=== PATIENT | male | born 1965 | race Asian ===

== ENCOUNTER 2017-01-03 17:47 | Emergency (ER) | payer MEDICAID ==
[~2017-01-03] VITALS: Ht 162.6 cm; Wt 63.5 kg
[2017-01-03] MEDS ORDERED: Norco 5mg/325mg tab ORAL ONE (18:00)
[2017-01-03] MEDS ORDERED: IBUPROFEN600 MG ORAL (18:21)
[2017-01-03 18:45] VITALS: BP 168/78
--- NOTE | 2017-01-03 19:01 | Emergency Room Report ---
History of Present Illness General Chief Complaint: Lower Extremity Injury Source: EMS Present Illness HPI The patient is a 51-year-old male presenting with left knee pain. He states that he was exercising yesterday, tripped, and fell onto the left knee. He denies hitting his head or loss of consciousness. Pain is a 9/10 dull ache and does not radiate from the knee. He states that he is unable to move the knee to to pain. He denies any numbness or tingling. He denies any other injury. Allergies: Coded Allergies: No Known Allergies (Unverified , 01/03/17) Patient History Past Medical History: see triage record Pertinent Family History: none Reviewed Nursing Documentation: PMH: Agreed, PSxH: Agreed Nursing Documentation-PMH Past Medical History: No History, Except For Hx Hypertension: Yes Hx Diabetes: Yes Hx Dialysis: Yes - 4 TIMES A WEEK Review of Systems All Other Systems: negative except mentioned in HPI Physical Exam Vital Signs Date Time Temp Pulse Resp B/P Pulse Ox O2 Delivery O2 Flow Rate FiO2 01/03/17 17:41 98.8 80 20 168/104 99 01/03/17 18:45 Room Air Sp02 EP Interpretation: reviewed, normal General Appearance: no apparent distress, alert, GCS 15, non-toxic Head: normocephalic, atraumatic Musculoskeletal: back normal, gait/station normal, normal range of motion, swelling - L knee, tender - TTP over the L anterior and medial knee Neurologic: alert, oriented x3, responsive, motor strength/tone normal, sensory intact, speech normal Psychiatric: judgement/insight normal, memory normal, mood/affect normal, no suicidal/homicidal ideation Skin: normal color, no rash, warm/dry, well hydrated Procedures Splinting Splinting : Consent: Verbal Location: L knee Pre-Made Type: knee immobilizer Pre-Proc Neuro Vasc Exam: normal Post-Proc Neuro Vasc Exam: normal Patient Tolerated: Well Complications: None Medical Decision Making PA Attestation Dr. Olvera is my supervising physician. Patient management was discussed with my supervising physician Diagnostic Impression: Primary Impression: Knee pain, left Qualified Codes: M25.562 - Pain in left knee ER Course The patient is a 51-year-old male presenting with left knee pain. Ddx considered include but not limited to sprain/strain, fracture, contusion PE: NAD There is tenderness to palpation over the left anterior and medial knee. Soft tissue swelling is present. No ecchymosis. Limited active range of motion due to pain. DP pulse 2+. Sensation is intact X-ray of the knee is unremarkable Knee immobilizer is placed over the left knee He will be discharged home with pain medication and needs to followup with primary doctor as well as possibly orthopedics. Other X-Ray Diagnostic Results Other X-Ray Diagnostic Results : X-Ray ordered: L knee # of Views/Limited Vs Complete: 3 View Indication: Pain EP Interpretation: Yes Interpretation: no dislocation, no soft tissue swelling, no fractures Impression: No acute disease Interpreting ER Provider: Myself PA Scribe Text X-rays unremarkable. No acute findings Last Vital Signs Date Time Temp Pulse Resp B/P Pulse Ox O2 Delivery O2 Flow Rate FiO2 01/03/17 18:45 78 18 168/78 98 Room Air 01/03/17 17:41 98.8 Status: improved Disposition: HOME, SELF-CARE Condition: Improved Scripts Ibuprofen* (MOTRIN*) 600 Mg Tablet 600 MG ORAL Q8H Y for For Pain, #30 TAB 0 Refills Prov: TERESA HAMILTON 01/03/17 Patient Instructions: Knee Pain Additional Instructions: I discussed my findings with the patient. All questions and concerns have been answered. Treatment and medication compliance have been addressed. I advised the patient that they need to follow up with PMD in 3-5 days. Return to ED if pain remains or worsens, numbness or tingling occurs, new rash is noticed, fever is noticed, or if needed for any reason. Patient verbalized understanding of discharge instructions. TERESA HAMILTON Jan 03, 2017 19:01
--- NOTE | 2017-01-04 11:36 | Diagnostic Imaging Report ---
Indication: Pain 3 views of the left knee were obtained. Findings: There is a large joint effusion demonstrated. There is no obvious acute fracture identified. If there strong clinical suspicion for fracture, suggest obtaining cross-sectional imaging such as CT or MRI. Impression: Large joint effusion. No obvious fracture.
== END 2017-01-03 18:50 | disposition home or self-care (01) ==
LOC: EDBD 17:47 → EMR 18:45
DX: M25.562 Pain in left knee (principal); M25.462 Effusion, left knee; I10 Essential (primary) hypertension; E11.9 Type 2 diabetes mellitus without complications
CPT/HCPCS: 29530; 99283

== ENCOUNTER 2017-07-18 06:04 | Inpatient (IN) | payer BC, MEDICAID ==
[~2017-07-18] VITALS: Ht 172.7 cm; Wt 61.7 kg
[~2017-07-18 06:04] MED LIST: IBUPROFEN600 MG ORAL
[2017-07-18] MEDS ORDERED: UNOBMED (06:08)
--- NOTE | 2017-07-18 06:10 | Emergency Room Report ---
History of Present Illness General Chief Complaint: Dyspnea/Respdistress Source: Patient, EMS (Julee Rhodes M.D.) Present Illness HPI 52-year-old male, diabetes, on peritoneal dialysis, performs it daily, history of left-sided pleural effusion, with thoracentesis performed at outside hospital 3 months ago, presenting with shortness of breath for one day. Patient coming from home, states the shortness of breath woke him up from sleep , occurs at rest and on exertion. Denies palpitations, diaphoresis, n/v. Denies chest pain Denies fever, chills, cough, abd pain. Denies smoking (Julee Rhodes M.D.) Allergies: Coded Allergies: No Known Allergies (Unverified , 01/03/17) Patient History Past Medical History: see triage record Past Surgical History: none Pertinent Family History: none Reviewed Nursing Documentation: PMH: Agreed, PSxH: Agreed (Julee Rhodes M.D. ) Nursing Documentation-PMH Hx Cardiac Problems: Yes - HIGH CHOLESTEROL Hx Hypertension: Yes Hx COPD: No - Pneumonia Hx Diabetes: Yes Hx Gastrointestinal Problems: Yes - PERITONEAL DIALYSIS Hx Dialysis: Yes (Julee Rhodes M.D.) Review of Systems All Other Systems: negative except mentioned in HPI (Julee Rhodes M.D.) Physical Exam Vital Signs Date Time Temp Pulse Resp B/P (MAP) Pulse Ox O2 Delivery O2 Flow Rate FiO2 07/18/17 05:56 96 36 197/102 99 Room Air Sp02 EP Interpretation: reviewed, normal General Appearance: alert, GCS 15, non-toxic, moderate distress Head: normocephalic, atraumatic Eyes: bilateral eye normal inspection, bilateral eye PERRL, bilateral eye EOMI ENT: normal ENT inspection, normal pharynx, normal voice, moist mucus membranes Neck: normal inspection, full range of motion, supple Respiratory: other - Respiratory rate is 30, decreased breath sounds left lung base, patient appears to breath however is speaking complete sentences Cardiovascular #1: normal inspection, regular rate, rhythm, no edema, normal capillary refill Cardiovascular #2: 2+ radial (R), 2+ radial (L) Gastrointestinal: normal inspection, non tender, soft, non-distended, no guarding, other - +peritoneal dialysis Musculoskeletal: normal inspection, back normal, normal range of motion, non- tender Neurologic: normal inspection, alert, oriented x3, responsive, motor strength/ tone normal, sensory intact, normal gait, speech normal Psychiatric: normal inspection, judgement/insight normal, memory normal Skin: normal inspection, normal color, no rash, warm/dry, well hydrated, normal turgor (Julee Rhodes M.D.) Medical Decision Making Diagnostic Impression: Primary Impression: Respiratory distress Additional Impressions: Pleural effusion ESRD (end stage renal disease) on dialysis ER Course [id number] male with shortness of breath DDX: Pleural effusion ACS vs. CHF vs. pneumonia versus influenza versus vs. pneumothorax PE on differential however at this time there are other more likely diagnoses. Plan: IV access, obtain labs including troponin, EKG, CXR ER course: Disposition: Signed out patient to -pending labs -anticipate admission Please note that this Emergency Department Report was dictated using [employer] technology software, occasionally this can lead to erroneous entry secondary to interpretation by the dictation equipment. EKG Diagnostic Results EP Interpretation: Yes Rate: normal Rhythm: NSR ST Segments: T. inversion in V4 V5, lead 1 and aVL, II ASA given to patient: Yes Rhythm Strip EP Interpretation: Yes Rate: 90 Rhythm: NSR, no PVCs, no ectopy Chest X-ray CXR: Ordered: Yes 1 view Indication: Shortness of breath EP interpretation: Yes Interpretation: No consolidation, no effusion, no PTX, no acute cardiopulmonary disease Impression: No acute disease Electronically signed by Julee Rhodes MD (Julee Rhodes M.D.) ER Course Hospital Course 52-year-old male presents ED complaining of shortness of breath Clinical course Patient initially seen and evaluated by Dr Rhodes; please see her note for full history and physical labs reviewed- no leukocytosis, hemoglobin/hematocrit stable, BUN/creatinine elevated, troponins 0.075, BNP elevated EKG - NSR, twave inversions in lateral leads Chest x-ray- large L effusion, ?PNA ASA given. Antibiotics given. Blood pressure elevated in given hydralazine with BP improved Case discussed with Dr. Connors and he agreed to accept the patient to his service for further care and support I. I feel this is a highly complex case requiring extensive working including EKG/Rhythm strip, Xray/CT/US, Blood/urine lab work, repeat exams while in ED, and administration of strong opiates/narcotics for pain control, admission to hospital or close patient follow up. Diagnosis - respiratory distress, pleural effusion, ESRD on diaylsis admitted to telemetry in serious condition Labs Test 07/18/17 06:25 White Blood Count 4.6 K/UL (4.8-10.8) Red Blood Count 4.22 M/UL (4.70-6.10) Hemoglobin 13.5 G/DL (14.2-18.0) Hematocrit 40.7 % (42.0-52.0) Mean Corpuscular Volume 97 FL (80-99) Mean Corpuscular Hemoglobin 32.1 PG (27.0-31.0) Mean Corpuscular Hemoglobin Concent 33.2 G/DL (32.0-36.0) Red Cell Distribution Width 14.8 % (11.6-14.8) Platelet Count 161 K/UL (150-450) Mean Platelet Volume 7.2 FL (6.5-10.1) Neutrophils (%) (Auto) 68.0 % (45.0-75.0) Lymphocytes (%) (Auto) 16.1 % (20.0-45.0) Monocytes (%) (Auto) 11.6 % (1.0-10.0) Eosinophils (%) (Auto) 3.5 % (0.0-3.0) Basophils (%) (Auto) 0.8 % (0.0-2.0) Sodium Level 136 MMOL/L (136-145) Potassium Level 3.9 MMOL/L (3.5-5.1) Chloride Level 97 MMOL/L (98-107) Carbon Dioxide Level 25 MMOL/L (21-32) Anion Gap 14 mmol/L (5-15) Blood Urea Nitrogen 63 mg/dL (7-18) Creatinine 12.4 MG/DL (0.55-1.30) Estimat Glomerular Filtration Rate 4.3 mL/min (>60) Glucose Level 103 MG/DL (74-106) Calcium Level 8.7 MG/DL (8.5-10.1) Total Bilirubin 0.4 MG/DL (0.2-1.0) Aspartate Amino Transf (AST/SGOT) 19 U/L (15-37) Alanine Aminotransferase (ALT/SGPT) 16 U/L (12-78) Alkaline Phosphatase 70 U/L (46-116) Troponin I 0.075 ng/mL (0.000-0.056) Pro-B-Type Natriuretic Peptide > 50242 pg/mL (0-125) Total Protein 7.1 G/DL (6.4-8.2) Albumin 2.5 G/DL (3.4-5.0) Globulin 4.6 g/dL Albumin/Globulin Ratio 0.5 (1.0-2.7) (SHERWIN OLVERA M.D.) EKG Diagnostic Results Rate: normal Rhythm: NSR ST Segments: no acute changes ASA given to the pt in ED: Yes (SHERWIN OLVERA M.D.) Rhythm Strip Diag. Results EP Interpretation: yes Rhythm: NSR, no PVC's, no ectopy (SHERWIN OLVERA M.D.) Chest X-Ray Diagnostic Results Chest X-Ray Diagnostic Results : Chest X-Ray Ordered: Yes # of Views/Limited/Complete: 1 View Indication: Shortness of Breath Interpretation: no pneumothorax, other - large L effusion ? PNA Impression: Other - pleural effusion Electronically Signed by: Electronically signed by Sherwin Olvera MD (SHERWIN OLVERA M.D.) Last Vital Signs Date Time Temp Pulse Resp B/P (MAP) Pulse Ox O2 Delivery O2 Flow Rate FiO2 07/18/17 05:56 96 36 197/102 99 Room Air (Julee Rhodes M.D.) Status: improved (SHERWIN OLVERA M.D.) Disposition: ADMITTED INPATIENT Condition: Serious Julee Rhodes M.D. Jul 18, 2017 06:10 SHERWIN OLVERA M.D. Jul 18, 2017 08:19
[2017-07-18 06:15] VITALS: BP 198/105
[2017-07-18] MEDS ORDERED: JANUVIA25 MG ORAL (06:36)
[2017-07-18] MEDS ORDERED: ATORVASTATIN CA20 MG ORAL (06:36)
[2017-07-18] MEDS ORDERED: CALCITRIOL0.25 MCG PO (06:36)
[2017-07-18] MEDS ORDERED: DILTIAZEM 24HR180 M1 ORAL (06:36)
[2017-07-18] MEDS ORDERED: STOOL SOFTE PO (06:36)
[2017-07-18] MEDS ORDERED: AMLODIPINE BESY10 MG ORAL (06:36)
[2017-07-18 06:39] LABS: BASOPHILS % (AUTO) 0.8 % (0.0-2.0); EOSINOPHILS % (AUTO) 3.5 % (0.0-3.0); HEMATOCRIT 40.7 % (42.0-52.0); HEMOGLOBIN 13.5 G/DL (14.2-18.0); LYMPHOCYTES % (AUTO) 16.1 % (20.0-45.0); MEAN CORPUSCULAR VOLUME 97 FL (80-99); MONOCYTES % (AUTO) 11.6 % (1.0-10.0); PLATELET COUNT 161 K/UL (150-450); RED BLOOD COUNT 4.22 M/UL (4.70-6.10); RED CELL DISTRIBUTION WIDTH 14.8 % (11.6-14.8); WHITE BLOOD COUNT 4.6 K/UL (4.8-10.8)
[2017-07-18 07:04] LABS: ANION GAP 14 mmol/L (5-15); BLOOD UREA NITROGEN 63 mg/dL (7-18); CALCIUM 8.7 MG/DL (8.5-10.1); CARBON DIOXIDE 25 MMOL/L (21-32); CHLORIDE 97 MMOL/L (98-107); CREATININE 12.4 MG/DL (0.55-1.30); POTASSIUM 3.9 MMOL/L (3.5-5.1); SODIUM 136 MMOL/L (136-145)
[2017-07-18 07:08] LABS: ALANINE AMINOTRANSFERASE 16 U/L (12-78); ALBUMIN 2.5 G/DL (3.4-5.0); ALBUMIN/GLOBULIN RATIO 0.5 (1.0-2.7); ALKALINE PHOSPHATASE 70 U/L (46-116); ASPARTATE AMINO TRANSFERASE 19 U/L (15-37); BILIRUBIN,TOTAL 0.4 MG/DL (0.2-1.0)
[2017-07-18 07:28] VITALS: BP 195/105
[2017-07-18] MEDS ORDERED: Morphine Sulfate 2mg/ml Inj IVP PRN (07:30)
[2017-07-18] MEDS ORDERED: Albuterol/Ipratropium 3ml neb HHN PRN (07:30)
[2017-07-18] MEDS ORDERED: Zolpidem 5mg tab ORAL PRN (07:30)
[2017-07-18] MEDS ORDERED: Miralax 17gm pkt ORAL PRN (07:30)
[2017-07-18] MEDS ORDERED: dilTIAZem HCl CD 180mg cap ORAL SCH (09:00)
[2017-07-18] MEDS ORDERED: Calcitriol 0.25mcg Cap ORAL SCH (09:00)
[2017-07-18] MEDS ORDERED: Heparin 5000 units/ml inj SUBQ SCH (09:00)
[2017-07-18] MEDS ORDERED: sitaGLIPtin 25mg tab ORAL SCH (09:00)
--- NOTE | 2017-07-18 10:27 | Diagnostic Imaging Report ---
Indication: Shortness of breath Technique: One view of the chest Comparison: none Findings: There is fairly extensive bilateral left greater than right interstitial and airspace edema. There are large bilateral pleural effusions, left greater than right. The heart size is difficult to assess, suspect enlarged Impression: Bilateral left greater than right interstitial and airspace infiltrates versus edema, suspect the latter. Bilateral large pleural effusions, left greater than right Probable cardiomegaly
[2017-07-18 11:25] VITALS: BP 170/96
[2017-07-18] MEDS ORDERED: NovoLOG Insulin Flexpen SUBQ SCH (11:30)
[2017-07-18 11:45] VITALS: BP 170/96
--- NOTE | 2017-07-19 15:46 | Discharge Summary ---
Discharge Summary Hospital Course Date of Admission Jul 18, 2017 at 06:50 Date of Discharge Jul 18, 2017 at 12:00 Admitting Diagnosis SOB HPI Alex Duke is a 52 year old male who was admitted on Jul 18, 2017 at 06:50 for Shortness Of Breath Hospital Course PATIENT LEFT FROM ED Discharge Discharge Disposition Patient LEFT AMA Discharge Diagnoses: Roslyn Nath NP Jul 19, 2017 15:46
--- NOTE | 2017-07-19 15:47 | History & Physical ---
History and Physical History & Physicial PATIENT LEFT AMA FROM ED Roslyn Nath NP Jul 19, 2017 15:47
--- NOTE | 2017-07-21 15:36 | Cardiology Report ---
APPROVED REPORT EKG Measurement Heart [id number] Normal sinus rhythm T wave abnormality, consider lateral ischemia Prolonged QT Abnormal ECG
== END 2017-07-18 12:00 | disposition left against medical advice (07) | DRG 204 ==
LOC: EDBD 06:04 → EMR 06:32 → 2E 06:50 → EDBEDREQ 07:28
DX: R06.03 Acute respiratory distress (principal); N18.6 End stage renal disease; E11.22 Type 2 diabetes mellitus with diabetic chronic kidney disease; J90 Pleural effusion, not elsewhere classified; E78.00 Pure hypercholesterolemia, unspecified; Z99.2 Dependence on renal dialysis
CPT/HCPCS: 36415; 71045; 80053; 83880; 84484; 85025; 87081; 93005; 99285; J1815